=== PATIENT | female | born 1965 | race Caucasian/White ===

== ENCOUNTER → 2017-01-29 19:03 | Outpatient (CLI) | payer BC ==
[2014-12-15 07:00] VITALS: BMI 29.2
[~2017-01-29 19:03] MED LIST: HYDROCODONE-APA1 TAB PO; MULTIPLE VITAMI1 TA1 PO
== END | disposition home or self-care (01) ==
LOC: D.MAMMO 14:45
DX: Z12.31 Encounter for screening mammogram for malignant neoplasm of breast (principal)

== ENCOUNTER 2018-04-25 08:00 | Outpatient (CLI) | payer BC ==
[2014-12-15 07:00] VITALS: BMI 29.2
== END 2018-04-25 09:00 | disposition home or self-care (01) ==
LOC: D.MAMMO 08:00
DX: Z12.31 Encounter for screening mammogram for malignant neoplasm of breast (principal)

== ENCOUNTER → 2019-01-21 12:45 | Outpatient (CLI) | payer OTHER ==
[2014-12-15 07:00] VITALS: BMI 29.2
== END | disposition home or self-care (01) ==
LOC: D.CT 12:45
PROVIDERS: ATTEND Family Medicine
DX: G51.8 Other disorders of facial nerve (principal)

== ENCOUNTER → 2019-03-04 08:20 | Outpatient (CLI) | payer OTHER ==
[2014-12-15 07:00] VITALS: BMI 29.2
== END | disposition home or self-care (01) ==
LOC: D.MRI 08:20
PROVIDERS: ATTEND Family Medicine
DX: G51.8 Other disorders of facial nerve (principal)

== ENCOUNTER → 2019-04-02 12:44 | Outpatient (CLI) | payer OTHER ==
[2014-12-15 07:00] VITALS: BMI 29.2
== END | disposition home or self-care (01) ==
LOC: D.RAD 12:44
PROVIDERS: ATTEND Family Medicine
DX: R13.10 Dysphagia, unspecified (principal)

== ENCOUNTER 2019-05-08 08:00 | Outpatient (CLI) | payer OTHER ==
[2014-12-15 07:00] VITALS: BMI 29.2
== END 2019-05-08 23:59 | disposition home or self-care (01) ==
LOC: D.MAMMO 08:00
PROVIDERS: ATTEND Family Medicine
DX: Z12.31 Encounter for screening mammogram for malignant neoplasm of breast (principal)

== ENCOUNTER → 2019-06-16 10:25 | Outpatient (CLI) | payer OTHER ==
[2014-12-15 07:00] VITALS: BMI 29.2
== END | disposition home or self-care (01) ==
LOC: D.CT 10:25
PROVIDERS: ATTEND Internal Medicine Gastroenterology
DX: R93.3 Abnormal findings on diagnostic imaging of other parts of digestive tract (principal); K31.89 Other diseases of stomach and duodenum

== ENCOUNTER → 2019-06-18 07:24 | Outpatient (CLI) | payer OTHER ==
[2014-12-15 07:00] VITALS: BMI 29.2
== END | disposition home or self-care (01) ==
LOC: D.MRI 07:24
PROVIDERS: ATTEND Internal Medicine Gastroenterology
DX: R19.09 Other intra-abdominal and pelvic swelling, mass and lump (principal); R93.5 Abnormal findings on diagnostic imaging of other abdominal regions, including retroperitoneum

== ENCOUNTER 2020-05-09 08:00 | Outpatient (CLI) | payer OTHER ==
[2014-12-15 07:00] VITALS: BMI 29.2
== END 2020-05-09 23:59 | disposition home or self-care (01) ==
LOC: D.MAMMO 08:00
PROVIDERS: ATTEND Family Medicine
DX: Z12.31 Encounter for screening mammogram for malignant neoplasm of breast (principal)